=== PATIENT | male | born 1970 | race Two or more races ===

== ENCOUNTER 2018-08-23 01:23 | Emergency (ER) | payer BC ==
[2018-08-23 01:30] VITALS: PULSE 73; TEMP 97.8; BMI 37.5
[2018-08-23 01:40] VITALS: BP 145/85
--- NOTE | 2018-08-23 01:48 | PDOC ---
History of Present Illness - General Chief Complaint: Pain, Acute Stated Complaint: INHALED PEPPER SPRAY,CHEST DISCOMFORT Time Seen by Provider: 08/23/18 01:40 History Source: Patient Exam Limitations: No Limitations - History of Present Illness Initial Comments: 08/23/18 01:48 This is a 47-year-old male who comes in complaining of "abnormal EKG". Patient works as a police chief and during is some training exercises he inhaled some pepper spray and felt some discomfort in his anterior chest area. Patient said it felt similar to heartburn. Patient denied any shortness of breath. diaphoresis, nausea, radiation or any other associated symptoms. Patient's symptoms completely resolved after a few minutes and denies any symptoms at this time. Patient had a similar episode after inhaling noxious fumes approximately 6 months ago. After that episode patient had a complete cardiac workup including stress test, ultrasound and cardiac echo. Patient's workup was normal and he said at that time his EKG did show frequent PVCs otherwise was normal. Patient said symptoms occurred approximately 2 hours ago. Allergies: None Past Medical History: none Social history: Lives with family. No smoking. No alcohol. No illicit drugs. Surgical history: None General: No fevers or chills, no weakness, no weight loss HEENT: No change in vision. No sore throat,. No ear pain CardioVascular: + chest discomfort. No shortness of breath Respiratory:No cough, or wheezing. Gastrointestinal: no nausea, vomiting, diarrhea or constipation, No rectal bleeding Genitourinary: No dysuria, hematuria, or frequency Musculoskeletal: No joint or muscle pain or swelling Neurologic: No headache, vertigo, dizziness or loss of consciousness Psychiatric: nor depression Skin: No rashes or easy bruising Endocrine: no increased thirst or abnormal weight change Allergic: no skin or latex allergy All other systems reviewed and normal Exam: General: Well-nourished well-developed individual, no acute distress HEENT: Throat: Normal, tonsils normal, no erythema or exudate Neck: Supple, no meningeal signs, no lymphadenopathy Eyes::Pupils equal reactive and round, extraocular motion intact Chest: Nontender to palpation Cardiac: S1-S2 normal, regular rate and rhythm, no murmurs rubs or gallops Respiratory: Lungs clear to auscultation bilateral Abdomen: Soft, nondistended, normal bowel sounds, there is no tenderness on palpation diffusely Extremities: Warm, dry, no cyanosis, clubbing, or edema Skin: No rashes Neuro: Alert and oriented x3, CN II - XII intact, nonfocal exam with normal strength, normal sensation, normal reflexes, normal gait, Psych: Normal mood and affect EKG sinus rhythm at a rate of 78 with frequent PVCs no acute ST-T wave changes, normal intervals otherwise normal EKG Assessment: This is a 47-year-old male with a few minutes of anterior chest discomfort with no other associated symptoms. Patient has seborrheic factors of hypertension and hypercholesterol. Patient's EKG shows frequent PVCs otherwise no acute ST-T wave changes. Well sent cardiac enzymes if negative will discharge patient with instructions to see his buildings painter today before returning to work. Reevaluation patient's troponin was not measurable . Patient discharged to follow-up with his buildings painter today. Patient given note for no work until buildings painter clearance Past History - Past Medical History Allergies/Adverse Reactions: Allergies Allergy/AdvReac Type Severity Reaction Status Date / Time No Known Allergies Allergy Verified 08/23/18 01:24 Home Medications: Ambulatory Orders Atorvastatin Ca [Lipitor] 20 mg PO HS 08/23/18 Losartan Potassium 100 mg PO DAILY 08/23/18 COPD: No HTN: Yes Hypercholesterolemia: Yes - Suicide/Smoking/Psychosocial Hx Smoking Status: No Smoking History: Never smoked Have you smoked in the past 12 months: No Number of Cigarettes Smoked Daily: 0 Information on smoking cessation initiated: No Hx Alcohol Use: No Drug/Substance Use Hx: No Substance Use Type: None *Physical Exam - Vital Signs Last Vital Signs Temp Pulse Resp BP Pulse Ox 97.8 F 73 16 145/85 100 08/23/18 01:27 08/23/18 01:27 08/23/18 01:27 08/23/18 01:40 08/23/18 01:27 Heart Score/ECG Review - History History: Slightly suspicious - Electrocardiogram EKG: Normal - Age Age: 45-65 - Risk Factors Risk Factors Heart Score: Yes Hx Hypercholesterolemia, Yes Hx Hypertension, Yes Hx Obesity Based on the list above the patient has:: >/=3 risk factors or Hx atherosclerotic disease - Troponin Troponin: </= normal limit - Score Heart Score - Total: 3 Moderate Sedation - Procedure Monitoring Vital Signs: Procedure Monitoring Vital Signs Temperature 97.8 F 08/23/18 01:27 Pulse Rate 73 08/23/18 01:27 Respiratory Rate 16 08/23/18 01:27 Blood Pressure 145/85 08/23/18 01:40 O2 Sat by Pulse Oximetry (%) 100 08/23/18 01:27 ED Treatment Course - ADDITIONAL ORDERS Additional order review: Laboratory Results 08/23/18 01:55 Creatine Kinase 357 H Creatine Kinase Index 0.7 CK-MB (CK-2) 2.5 Troponin I < 0.02 *DC/Admit/Observation/Transfer Diagnosis at time of Disposition: Toxic effect of pepper spray Qualifiers: Encounter type: initial encounter Injury intent: accidental or unintentional Qualified Code(s): T65.891A - Toxic effect of other specified substances, accidental (unintentional), initial encounter - Discharge Dispostion Disposition: HOME Condition at time of disposition: Stable Decision to Admit order: No - Referrals Referrals: Anjum Hall MD [Primary Care Provider] - - Patient Instructions Additional Instructions: Home and do not go back to work. Call your buildings painter in the morning and follow-up with your buildings painter. Take a copy of your blood work and EKG with you to the buildings painter. He may return to work when cleared by your buildings painter. Return to the emergency department immediately with ANY new, persistent or worsening symptoms. Continue any medications as previously prescribed by your physician. . Please make sure your doctor reviews the results of your emergency evaluation. Thank you for coming to the Emergency Department today for your care. It was a pleasure to see you today. Please note that your evaluation is INCOMPLETE until you follow-up with your doctor. - Post Discharge Activity Forms/Work/School Notes: Back to Work
--- NOTE | 2018-08-23 12:25 | EKG ---
Test Reason : Blood Pressure : / mmHG Vent. Rate : 076 BPM Atrial Rate : 076 BPM P-R Int : 154 ms QRS Dur : 090 ms QT Int : 388 ms P-R-T Axes : 013 -24 030 degrees QTc Int : 436 ms SINUS RHYTHM WITH FREQUENT PREMATURE VENTRICULAR COMPLEXES OTHERWISE NORMAL ECG NO PREVIOUS ECGS AVAILABLE Confirmed by DEVANTE BACK, JO ([id number]) on 08/23/2018 12:25:17 PM Referred By: MD ZHENG Confirmed By:JO LOW MD
== END 2018-08-23 03:30 | disposition home or self-care (01) ==
LOC: FER 01:23
DX: T65.891A Toxic effect of other specified substances, accidental (unintentional), initial encounter (principal); Y92.89 Other specified places as the place of occurrence of the external cause; I10 Essential (primary) hypertension; E78.00 Pure hypercholesterolemia, unspecified; I49.3 Ventricular premature depolarization; E66.9 Obesity, unspecified; Z68.37 Body mass index [BMI] 37.0-37.9, adult
CPT/HCPCS: 36415; 82550; 82553; 84484; 93005; 99281-25

== ENCOUNTER 2018-12-28 09:09 | Emergency (ER) | payer OTHER, BC | END 2018-12-28 11:28 | disposition home or self-care (01) | LOC: FER 09:09 ==

== ENCOUNTER 2019-05-06 13:40 | Emergency (ER) | payer BC ==
[2019-05-06] MEDS ORDERED: KETOROLAC TROMETHAMINE 30 MG/1 ML VIAL IVPUSH ONE (13:54)
[2019-05-06] MEDS ORDERED: SODIUM CHLORIDE 1,000 ML IV STA (13:54)
[2019-05-06] MEDS ORDERED: ONDANSETRON 4 MG/2 ML VIAL IVPUSH ONE (13:55)
--- NOTE | 2019-05-06 13:57 | PDOC ---
History of Present Illness - General Chief Complaint: Pain, Acute Stated Complaint: KIDNEY STONE Time Seen by Provider: 05/06/19 13:54 History Source: Patient Exam Limitations: No Limitations - History of Present Illness Initial Comments: 05/06/19 13:56 HPI 48 YOM with h/o HTN, HLD presenting with acute onset of worsening right flank pain radiating to right groin, associated with movement. he woke up at 530AM with right flank pain and has progressed throughout the day. took ASA this morning, with out relief. he initially attributed to abdominal pain/gas, but did not improve. he admits to pain with urination with the flank pain. no history of similar sx. Denies fever, chills, chest pain, SOB, palpitation, dizziness, weakness, N, V, D , bladder and bowel problems, focal weakness/paresthesias, leg swelling/pain, rash. No new changes in medications. No suspicious food intake Allergies: None Past Medical History/PSH: HTN, HLD, no surgeries. Social history: Lives with family. No tobacco, ETOH or drug use. Meds: as documented in EMR Family history: noncontributory Review of systems Constitutional: no fevers or chills. No weakness HEENT: no headache or dizziness. No congestion. No visual/hearing disturbances. CVS: no cp or syncope. Resp: no sob. No cough. Gastrointestinal: +flank/abdominal pain, nausea no diarrhea or vomiting. Genitourinary: no urinary sx, hematuria. +pain with urination. no urethral discharge. +right testicular pain. MUSCULOSKELETAL: No joint pain and swelling. No neck or back pain. SKIN: no redness or skin changes, no discharge, no rash. No wounds. Hematologic: no easy bruising/bleeding. NEUROLOGIC: No headache, dizziness, LOC or altered mental status. No weakness, numbness or tingling. Psych: no anxiety or depression Allergic/Immunologic: no allergies All other systems reviewed and negative, or as documented in HPI. Physical exam General: mild distress 2/2 pain, colicky. HEENT: NCAT, PERRL, EOMI, clear conjunctiva, anicteric, moist mucus membranes, clear oropharynx, no oral lesions.. Neck: neck supple, FROM Resp: CTAB, normal and even respirations, no respiratory distress CVS: RRR, no murmurs, 2+ peripheral pulses throughout, no peripheral edema Abdomen: soft, NTND, no rebound or guarding. +right flank TTP, mild CVAT. : normal external genitalia, no discharge. normal testicular lie, +Right Testicular tenderness, no swelling or erythema or discoloration. Back: nontender, normal inspection and ROM MSK: no edema, ANTONIO x4, ROM intact. No clubbing or cyanosis. normal bulk and tone. Neuro: alert, Psych: Calm and cooperative Skin: warm and well perfused, cap refill <2 sec, normal color 05/06/19 15:56 Past History - Past Medical History Allergies/Adverse Reactions: Allergies Allergy/AdvReac Type Severity Reaction Status Date / Time No Known Allergies Allergy Verified 05/06/19 14:08 Home Medications: Ambulatory Orders Atorvastatin Ca [Lipitor] 20 mg PO DAILY 08/23/18 Nebivolol HCl [Bystolic] 5 mg PO DAILY 12/28/18 Ibuprofen [Ibu] 600 mg PO QID PRN #20 tablet 05/06/19 oxyCODONE HCL [Roxicodone -] 10 mg PO Q6H PRN #12 tablet MDD 4 05/06/19 COPD: No HTN: Yes Hypercholesterolemia: Yes - Psycho Social/Smoking Cessation Hx Smoking Status: No Smoking History: Never smoked Have you smoked in the past 12 months: No Number of Cigarettes Smoked Daily: 0 Hx Alcohol Use: No Drug/Substance Use Hx: No Substance Use Type: None ED Treatment Course - LABORATORY CBC & Chemistry Diagram: 05/06/19 14:05 05/06/19 14:05 Medical Decision Making - Medical Decision Making 05/06/19 15:33 Vital Signs Temp Pulse Resp BP Pulse Ox 98.0 F 56 L 18 145/88 98 05/06/19 13:54 05/06/19 13:54 05/06/19 13:54 05/06/19 13:54 05/06/19 13:54 DDx abdominal pain: Renal colic, biliary colic, metabolic/electrolyte derangements. GERD, PUD, esophageal spasm, pancreatitis, hepatitis, constipation , colitis, gastroenteritis, cholecystitis, UTI, pyelonephritis, ileus, SBO, medication side effect, hernia, appendicitis, diverticulitis, mesenteric ischemia. msk strain, mesenteric adenitis, psoas abscess. testicular torsion, hydrocele, infection labs and lytes wnl. Cr elevated 1.4, similar to prior baseline ~1.3 lytes normal UA with blood and protein, does not appear infectious. scrotal sono with b/l hydrocele, but no torsion or testicular/epididymal abnormalities. Clinically the patient presents with symptomatic ureterolithiasis (kidney stones). IV pain medications, antiemetics, and IV fluids were given. A CT Abdomen/Pelvis was obtained for concern for a possible obstructing kidney stone and to rule out other pathologic conditions. The CT confirmed revealed likely passed stone. CT a/p with rt hydronephrosis, no def stone, likely passed fatty liver. umbilical hernia, fat containing. no bladder stone. degenerative disc disease. The patient's labs were unremarkable as above. With pain medication the patient improved significantly. The patient is referred to the on-call urologist for follow up and is discharged with oral narcotics for pain control, Flomax, antiemetics, and given the following return precautions: Fever > 100.5, pain not controlled with narcotics, vomiting or any other concerns and to strain the urine Pt to be discharged in stable condition. Patient and family made aware of clinical impression, treatment recommendations and disposition plan, return precautions discussed (including but not limited to new or persistent/worsening symptoms, as above for kidney stone. Follow up with PMD and/or urologist as recommended, follow up information provided, take medications as instructed for duration of time. continue with supportive care, avoid triggers and precipitants. All questions answered to patient's satisfaction and expressed understanding and comfort with this. At the time of discharge, the patient is alert, clinically improved, tolerating po and verbalizes understanding of instructions, satisfied with the care received and felt comfortable with the plan. Patient does not suffer from an acute life-threatening medical condition at this time and is safe for outpatient follow-up. 05/06/19 15:36 05/06/19 15:37 05/06/19 15:39 05/06/19 15:40 05/06/19 15:42 Discharge - Discharge Information Problems reviewed: Yes Clinical Impression/Diagnosis: Colic, ureteral Hydronephrosis Qualifiers: Hydronephrosis type: unspecified Qualified Code(s): N13.30 - Unspecified hydronephrosis Condition: Good Disposition: HOME - Admission No - Additional Discharge Information Prescriptions: Ibuprofen [Ibu] 600 mg PO QID PRN #20 tablet PRN Reason: Moderate Pain oxyCODONE HCL [Roxicodone -] 10 mg PO Q6H PRN #12 tablet MDD 4 PRN Reason: Severe Pain - Follow up/Referral Referrals: Anjum Nevarez MD [Staff Physician] - Emeka Velasquez MD., MD [Staff Physician] - Curly Nguyen MD [Staff Physician] - - Patient Discharge Instructions Patient Printed Discharge Instructions: DI for Kidney Stones Additional Instructions: Your CT results were significant for swelling of collecting system, likely passed stone. also incidental umbilical hernia and fatty liver your ultrasound showed nonspecific fluid around testicles but no acute pathology or torsion. laboratory results were unremarkable. Drink plenty of water/fluids, avoid caffeine or alcohol Strain all urine for the next 1-2 days and save any stone for analysis Ibuprofen/naproxen/acetaminophen as needed for [id number] pain. Use Motrin (also called Ibuprofen or Advil) 400 mg every 6 hours as needed for pain. If you have any stomach discomfort while taking Motrin, you can use TUMS to help. Oxycodone every 6 hours as needed for severe pain; Please do not drive or operate heavy machinery while on this medication because it can impair your judgement. This is a very addictive medication, do not take it unless you absolutely have to. Return to ER if you experience persistent pain/vomiting/fever/dehydration, difficulty urinating or inability to tolerate oral intake. Follow-up with your primary doctor within the next 2-3 days. Urologist follow up this week, referral given as well. (we will give you a list of urologists, but make sure they accept your insurance). Please bring your labs and imaging with you to your appointment. - Post Discharge Activity
[2019-05-06] MEDS ORDERED: KETOROLAC TROMETHAMINE 15 MG/ML VIAL ONE (14:09)
[2019-05-06] MEDS ORDERED: ONDANSETRON 4 MG/2 ML VIAL ONE (14:09)
[2019-05-06 14:27] VITALS: BP 145/88; PULSE 56; TEMP 98; BMI 37.3
[2019-05-06 14:44] LABS: EOS % 2.5 % (0-4.5); HEMATOCRIT 44.1 % (35.4-49); HEMOGLOBIN 14.6 GM/dl (11.7-16.9); LYMPH % 25.7 % (8-40); MCH 28.9 pg (25.7-33.7); MCHC 33.2 g/dl (32.0-35.9); MEAN PLT VOLUME 7.8 fl (7.5-11.1); NEUT % 64.8 % (42.8-82.8); PLATELET COUNT 311 K/MM3 (134-434); RBC 5.07 M/mm3 (4.00-5.60); RDW 14.1 % (11.9-15.9); WHITE BLOOD COUNT 7.7 K/mm3 (4.0-10.8)
[2019-05-06 14:57] LABS: ALBUMIN 3.9 g/dl (3.4-5.0); BILIRUBIN,TOTAL 0.6 mg/dl (0.2-1); CALCIUM 8.9 mg/dl (8.5-10); CREATININE 1.4 mg/dl (0.55-1.3); POTASSIUM 4.3 mmol/L (3.5-5.1); TOT PROT 6.8 g/dl (6.4-8.2)
[2019-05-06] MEDS ORDERED: morphine CARPU-JECT 4 MG/1 ML DISP.SYRIN IVPUSH ONE (15:42)
[2019-05-06 17:17] LABS: URINE SPERM 1+
== END 2019-05-06 16:03 | disposition home or self-care (01) ==
LOC: FER 13:40
PROC: 3E0333Z Introduction of Anti-inflammatory into Peripheral Vein, Percutaneous Approach (ICD-10-PCS; principal; 2019-05-06)
PROC: 3E033GC Introduction of Other Therapeutic Substance into Peripheral Vein, Percutaneous Approach (ICD-10-PCS; 2019-05-06)
PROC: 3E0337Z Introduction of Electrolytic and Water Balance Substance into Peripheral Vein, Percutaneous Approach (ICD-10-PCS; 2019-05-06)
DX: N13.30 Unspecified hydronephrosis (principal); N23 Unspecified renal colic; I10 Essential (primary) hypertension; E78.00 Pure hypercholesterolemia, unspecified
CPT/HCPCS: 36415; 74176-TC; 76870-TC; 80053; 81003; 81015; 85025; 87086; 99283-25; J7030

== ENCOUNTER 2019-07-21 11:49 | Emergency (ER) | payer BC ==
[2019-07-21 11:55] VITALS: PULSE 74; TEMP 97.2; BMI 39.1
[2019-07-21] MEDS ORDERED: SODIUM CHLORIDE 1,000 ML IV STA (11:57)
[2019-07-21] MEDS ORDERED: KETOROLAC TROMETHAMINE 30 MG/1 ML VIAL IVPUSH ONE (11:57)
[2019-07-21] MEDS ORDERED: ONDANSETRON 4 MG/2 ML VIAL IVPUSH ONE (11:57)
[2019-07-21 12:01] VITALS: BP 113/92
--- NOTE | 2019-07-21 12:01 | PDOC ---
History of Present Illness - General Chief Complaint: Pain Stated Complaint: MONIKA STONE Time Seen by Provider: 07/21/19 11:51 History Source: Patient Exam Limitations: No Limitations - History of Present Illness Travel History: No Initial Comments: 07/21/19 11:59 48 y/ male with right flank pain radiating down into right groin that started today. No hematuria, vomiting fever or chills. Hx of kidney stones in the past. No pain in getting worse, No fall or trauma. Has not taken anything for the pain. Pain Radiation: reports: no radiation Past History - Past Medical History Allergies/Adverse Reactions: Allergies Allergy/AdvReac Type Severity Reaction Status Date / Time No Known Allergies Allergy Verified 05/06/19 14:08 Home Medications: Ambulatory Orders Atorvastatin Ca [Lipitor] 20 mg PO DAILY 08/23/18 Nebivolol HCl [Bystolic] 5 mg PO DAILY 12/28/18 Ibuprofen [Ibu] 600 mg PO QID PRN #20 tablet 05/06/19 oxyCODONE HCL [Roxicodone -] 10 mg PO Q6H PRN #12 tablet MDD 4 05/06/19 COPD: No HTN: Yes Hypercholesterolemia: Yes - Psycho Social/Smoking Cessation Hx Smoking Status: No Smoking History: Never smoked Have you smoked in the past 12 months: No Number of Cigarettes Smoked Daily: 0 Information on smoking cessation initiated: No Hx Alcohol Use: No Drug/Substance Use Hx: No Substance Use Type: None Review of Systems - Review of Systems Able to Perform ROS?: Yes Is the patient limited Wolof proficient: No Constitutional: No: Chills, Fever Respiratory: No: Cough, Shortness of Breath Cardiac (ROS): No: Chest Pain : Yes: Flank Pain. No: Dysuria, Hematuria Musculoskeletal: Yes: Back Pain Integumentary: No: Bruising All Other Systems: Reviewed and Negative *Physical Exam - Vital Signs Last Vital Signs Temp Pulse Resp BP Pulse Ox 97.2 F L 74 20 194/104 H 100 07/21/19 11:49 07/21/19 11:49 07/21/19 11:49 07/21/19 11:49 07/21/19 11:49 - Physical Exam General Appearance: Yes: Nourished, Appropriately Dressed, Apparent Distress HEENT: positive: EOMI, TATI, Normal ENT Inspection, Normal Voice Neck: positive: Trachea midline, Normal Thyroid, Supple. negative: Tender, Rigid Respiratory/Chest: positive: Lungs Clear, Normal Breath Sounds. negative: Chest Tender, Respiratory Distress Cardiovascular: positive: Regular Rhythm, Regular Rate, S1, S2. negative: Edema , JVD, Murmur Vascular Pulses: Femoral (R): 4+, Femoral (L): 4+, Carotid (R): 4+, Carotid (L) : 4+, Dorsalis-Pedis (R): 4+, Doralis-Pedis (L): 4+ Gastrointestinal/Abdominal: positive: Normal Bowel Sounds, Flat, Soft. negative : Tender, Organomegaly Lymphatic: negative: Adenopathy, Tenderness, Other Musculoskeletal: positive: Normal Inspection. 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 NML intact, Fully Oriented, Alert, Normal Mood/ Affect, Normal Response, Motor Strength / ED Treatment Course - ADDITIONAL ORDERS Additional order review: 07/21/19 12:02 Patient appears to have a kidney stone, right flank pain Will obtain UA, CT and pain meds Pt in agreement with plan ED Progress Note - Progress Note Progress Note: 07/21/19 13:53 Pt is feeling much better after fluids and Toradol, now pain free CT abd/pelivs shows dilated ureter but no stone, most likely passed stone Will discharge pt home Pt is in agreement with plan Discharge - Discharge Information Problems reviewed: Yes Clinical Impression/Diagnosis: Kidney stone on right side Condition: Improved Disposition: HOME - Admission No - Follow up/Referral - Patient Discharge Instructions Patient Printed Discharge Instructions: DI for Kidney Stones Additional Instructions: Fluids, rest, Motrin If pain worsens return to ER - Post Discharge Activity
[2019-07-21] MEDS ORDERED: ONDANSETRON 4 MG/2 ML VIAL ONE (12:03)
[2019-07-21] MEDS ORDERED: KETOROLAC TROMETHAMINE 30 MG/1 ML VIAL ONE (12:03)
[2019-07-21 12:52] LABS: EPITHELIAL CELLS RARE /hpf
== END 2019-07-21 14:03 | disposition home or self-care (01) ==
LOC: FER 11:49
PROC: 3E0333Z Introduction of Anti-inflammatory into Peripheral Vein, Percutaneous Approach (ICD-10-PCS; principal; 2019-07-21)
PROC: 3E033GC Introduction of Other Therapeutic Substance into Peripheral Vein, Percutaneous Approach (ICD-10-PCS; 2019-07-21)
PROC: 3E0337Z Introduction of Electrolytic and Water Balance Substance into Peripheral Vein, Percutaneous Approach (ICD-10-PCS; 2019-07-21)
DX: N20.0 Calculus of kidney (principal); I10 Essential (primary) hypertension; E78.00 Pure hypercholesterolemia, unspecified
CPT/HCPCS: 74176-TC; 81003; 81015; 99282-25; J7030

== ENCOUNTER 2021-05-31 16:35 | Emergency (ER) | payer BC ==
[2021-05-31 16:42] VITALS: BP 151/93; PULSE 69; TEMP 98; BMI 34.4
[2021-05-31 17:13] LABS: BASO % 3.9 % (0-2.0); EOS % 2.8 % (0-4.5); HEMATOCRIT 40.4 % (35.4-49); HEMOGLOBIN 13.9 GM/dl (11.7-16.9); LYMPH % 22.5 % (8-40); MCH 29.6 pg (25.7-33.7); MCHC 34.4 g/dl (32.0-35.9); MEAN CELL VOLUME 85.9 fl (80-96); MEAN PLT VOLUME 7.2 fl (7.5-11.1); MONO % 7.4 % (3.8-10.2); NEUT % 63.4 % (42.8-82.8); PLATELET COUNT 311 10^3/uL (134-434); RDW 13.1 % (11.9-15.9); WHITE BLOOD COUNT 7.1 K/mm3 (4.0-10.8)
[2021-05-31 17:26] LABS: ALBUMIN 3.8 g/dl (3.4-5.0); ALK PHOS 53 U/L (45-117); ANION GAP 8 MMOL/L (8-16); BILIRUBIN,TOTAL 0.4 mg/dl (0.2-1); CALCIUM 8.8 mg/dl (8.5-10); CHLORIDE 104 mmol/L (98-107); CO2 28 mmol/L (21-32); CREATININE 1.5 mg/dl (0.55-1.3); GLUCOSE,RANDOM 97 mg/dl (74-106); SGOT/AST 21 U/L (15-37); SGPT/ALT 20 U/L (13-61); SODIUM 140 mmol/L (136-145); TOT PROT 6.7 g/dl (6.4-8.2)
== END 2021-05-31 19:03 | disposition home or self-care (01) ==
LOC: FER 16:35
DX: I20.1 Angina pectoris with documented spasm (principal)
CPT/HCPCS: 36415; 71045-TC-FY; 80053; 84484; 85025; 93005; 99285-25

== ENCOUNTER 2022-07-07 23:49 | Emergency (ER) | payer BC ==
[2022-07-08 00:06] VITALS: TEMP 98.4
[2022-07-08 00:08] VITALS: BMI 34.5
[2022-07-08 01:38] VITALS: BP 124/84; PULSE 64; RESP 14
== END 2022-07-08 01:38 | disposition home or self-care (01) ==
LOC: FER 23:49
DX: R00.2 Palpitations (principal); R07.9 Chest pain, unspecified
CPT/HCPCS: 36415; 82550; 82553; 84484; 93005; 99284-25